=== PATIENT | male | born 1990 | race Hispanic/Latino ===

== ENCOUNTER 2019-04-18 19:32 | Emergency (ER) | payer SELFPAY | END 2019-04-18 19:53 | disposition home or self-care (01) | LOC: BURERS 19:32 | DX: M79.641 Pain in right hand (principal); M79.642 Pain in left hand; F17.210 Nicotine dependence, cigarettes, uncomplicated; J45.909 Unspecified asthma, uncomplicated | CPT/HCPCS: 99281 ==

== ENCOUNTER 2020-05-05 00:36 | Emergency (ER) | payer SELFPAY ==
[2020-05-05] MEDS ORDERED: Amoxicillin/Potassium Clav 875 MG TAB ONE (00:57)
[2020-05-05 01:11] LABS: #Basophils 0.1 thou/uL (0.0-0.2); #Eosinphils 0.1 thou/uL (0.0-0.7); #Lymphocytes 1.9 thou/uL (1.20-3.40); #Monocytes 1.1 thou/uL (0.11-0.59); #Neutrophils 8.7 thou/uL (1.40-6.50); %Basophils 0.9 % (0.0-1.0); %Eosinophils 0.5 % (0.0-10.0); %Lymphocytes 16.3 % (21.0-51.0); %Monocytes 9.4 % (0.0-10.0); %Neutrophils 72.9 % (42.0-75.0); Hemoglobin 16.2 g/dL (14.0-18.0); Mean Corpuscular HGB CONC 32.9 g/dL (32.0-36.0); Mean Corpuscular Hemoglobin 30.2 pg (27.0-31.0); Mean Corpuscular Volume 91.8 fL (78.0-98.0); Mean Platelet Volume 10.1 fL (7.4-10.4); Platelet Count 230 thou/uL (130-400); RBC Distribution Width 12.1 % (11.5-14.5); Red Blood Cell (RBC) Count 5.35 mill/uL (4.70-6.10); White Blood Cell (WBC) Count 11.9 thou/uL (4.8-10.8)
[2020-05-05 01:18] LABS: Acetaminophen Less than 6.0 mcg/mL (10.0-30.0); Alcohol Less than 10 mg/dL (Less than 10); Salicylate Less than 8.0 mg/dL (15.0-30.0)
[2020-05-05 01:21] LABS: ALT (SGPT) 50 U/L (8-55); AST (SGOT) 67 U/L (5-34); Albumin 4.2 g/dL (3.5-5.0); Alkaline Phosphatase 75 U/L (40-110); Anion Gap 16 mmol/L (10-20); BUN (Urea Nitrogen) 19 mg/dL (8.9-20.6); Bilirubin, Total 3.1 mg/dL (0.2-1.2); Calc. Creatinine Clearance 0 mL/min (70-130); Calcium 8.9 mg/dL (7.8-10.44); Carbon Dioxide 22 mmol/L (22-29); Chloride 105 mmol/L (98-107); Globulin 3.1 g/dL (2.4-3.5); Glucose 106 mg/dL (70-105); Potassium 3.5 mmol/L (3.5-5.1); Protein, Total 7.3 g/dL (6.0-8.3); Sodium 139 mmol/L (136-145)
[2020-05-05] MEDS ORDERED: Bacitracin 1 PK ONE (01:26)
--- NOTE | 2020-05-05 06:55 | RAD ---
RIGHT LEG: Date: 05/05/2020 AP and lateral views show no fracture or opaque foreign body. The tibia and fibula appear intact. On the lateral view, at the ankle, a rounded bony density posteriorly is in accessory ossicle. There is another small bony density just anterior to the ankle joint that is most likely related to old tra ary. Unless the patient's dog bit was in this exact location, then I would doubt that it is foreign b josh, but this finding should be correlated with the exact site of the bite. IMPRESSION: Presumably negative study, but be sure that the location of the bite does not correlate with the ante rior aspect of the ankle as stated above. CODE T. POS: HOME
== END 2020-05-05 01:45 | disposition home or self-care (01) ==
LOC: BURERS 00:36
DX: S81.851A Open bite, right lower leg, initial encounter (principal); F17.210 Nicotine dependence, cigarettes, uncomplicated; W54.0XXA Bitten by dog, initial encounter
CPT/HCPCS: 80053; 80307; 84443; 85025